=== PATIENT | female | born 1940 | race African-American/Black ===

== ENCOUNTER 2024-06-06 15:37 | Inpatient (IN) | payer MEDICARE, OTHER ==
[~2024-06-06] VITALS: Ht 167.6 cm; Wt 79.5 kg
[2024-06-06] MEDS ORDERED: PRAV10TA40 PO (16:28)
[2024-06-06] MEDS ORDERED: NALO4SPR NS (16:28)
[2024-06-06] MEDS ORDERED: LORA0.5T48 PO (16:28)
[2024-06-06] MEDS ORDERED: MAGN400O6 PO (16:28)
[2024-06-06] MEDS ORDERED: QUET50TA PO (16:28)
[2024-06-06] MEDS ORDERED: CHOL10005 PO (16:28)
[2024-06-06] MEDS ORDERED: BUDE0.253 IH (16:28)
[2024-06-06] MEDS ORDERED: BISA10SU61 RC (16:28)
[2024-06-06] MEDS ORDERED: DOCU-141 PO (16:28)
[2024-06-06] MEDS ORDERED: GUAI-789 PO (16:28)
[2024-06-06] MEDS ORDERED: LEVO75TA7 PO (16:28)
[2024-06-06] MEDS ORDERED: MULT-619 PO (16:28)
[2024-06-06] MEDS ORDERED: ESCI-9 PO (16:28)
[2024-06-06] MEDS ORDERED: ACET-3117 PO (16:28)
[2024-06-06] MEDS ORDERED: OXYC5CAP18 PO (16:28)
[2024-06-06] MEDS ORDERED: SENN8.6T19 PO (16:28)
[2024-06-06] MEDS ORDERED: MEMA10TA PO (16:28)
[2024-06-06] MEDS ORDERED: APIX5TAB PO (16:28)
[2024-06-06] MEDS ORDERED: GABA-532 PO (16:28)
[2024-06-06] MEDS ORDERED: NA P133E RC (16:28)
[2024-06-06] MEDS ORDERED: FERR240T5 PO (16:28)
[2024-06-06 16:56] LABS: CALCIUM 8.3 mg/dL (8.5-10.1); CARBON DIOXIDE 29 mmol/L (21-32); CHLORIDE 106 mmol/L (98-107); CREATININE 0.7 mg/dL (0.6-1.3); GLUCOSE 98 mg/dL (74-106); POTASSIUM 4.2 mmol/L (3.5-5.1); SODIUM SERUM 141 mmol/L (136-145); UREA NITROGEN, BLOOD 17 mg/dL (7-18)
[2024-06-06 17:03] LABS: AMMONIA 27 umol/L (11-32)
[2024-06-06 17:05] LABS: ALANINE AMINOTRANSFERASE 16 U/L (14-59); ALBUMIN 2.6 g/dL (3.4-5.0); ALKALINE PHOSPHATASE 86 U/L (50-136); ASPARTATE AMINOTRANSFERASE 10 U/L (15-37); BILIRUBIN,DIRECT 0.1 mg/dL (0.0-0.2); BILIRUBIN,TOTAL 0.3 mg/dL (0.2-1.0); LIPASE 27 U/L (16-77)
[2024-06-06 17:07] LABS: DIFFERENTIAL COMMENT 0; MEAN CORPUSCULAR HGB CONC 32 g/dL (32.3-35.6); RED BLOOD CELL COUNT(AUTO) 3.44 MIL/uL (3.63-4.92)
[2024-06-06] MEDS: IV NORMAL SALINE 1000 ML BAG IV ONE (17:07)
[2024-06-06 17:12] LABS: BASOPHILS % (AUTO) 0.6 % (0.0-2.0); EOSINOPHILS # (AUTO) 0.2 K/uL (0.0-0.7); EOSINOPHILS % (AUTO) 3.9 % (0.0-7.0); HEMATOCRIT 31.3 % (31.2-41.9); LYMPHOCYTES # (AUTO) 2.2 K/uL (0.8-4.8); LYMPHOCYTES % (AUTO) 38.4 % (20.5-51.5); MEAN CORPUSCULAR HEMOGLOBIN 28.9 uug (24.7-32.8); MEAN CORPUSCULAR VOLUME 90.9 fL (75.5-95.3); MONOCYTES # (AUTO) 0.7 K/uL (0.1-1.30); MONOCYTES % (AUTO) 12.2 % (0.0-11.0); NEUTROPHILS # (AUTO) 2.5 K/uL (1.8-8.9); NEUTROPHILS % (AUTO) 44.9 % (38.5-71.5); PLATELET COUNT (AUTO) 305 K/uL (179-408); RED CELL DISTRIBUTION WIDTH 14.8 % (12.3-17.7); WHITE BLOOD COUNT (AUTO) 5.6 K/uL (3.8-11.8)
[2024-06-06 18:34] VITALS: TEMP 98.2; O2SAT 98
[2024-06-06 18:35] VITALS: BP 152/65; TEMP 98.2; O2SAT 98
[2024-06-06] MEDS ORDERED: Medication Not On Formulary EA (Acetaminophen 650 MG) PO PRN (19:15)
[2024-06-06] MEDS ORDERED: SENNOSIDES 1 TABLET PO PRN (19:15)
[2024-06-06] MEDS ORDERED: FLEET ENEMA 133 ML BOTTLE RC PRN (19:15)
[2024-06-06] MEDS ORDERED: MAGNESIUM HYDROXIDE 30 ML LIQUID UDC PO PRN ×2 (19:15→21:15)
[2024-06-06] MEDS ORDERED: BISACODYL 10 MG SUPP.RECT RC PRN (19:15)
[2024-06-06] MEDS ORDERED: Medication Not On Formulary EA (Oxycodone Hcl 5 MG) PO PRN (19:15)
[2024-06-06] MEDS ORDERED: OXYCODONE HCL 5 MG TABLET PO PRN (20:15)
[2024-06-06 20:19] VITALS: BP_SYST 105; BP_SYST 108; BP_DIAS 55; BP_DIAS 60; TEMP 97.5; TEMP 98.4; O2SAT 95; O2SAT 96
[2024-06-06] MEDS ORDERED: Medication Not On Formulary EA (Pravastatin Sodium 10 MG) PO SCH (21:00)
[2024-06-06] MEDS: QUETIAPINE FUMARATE 25 MG TABLET PO SCH (21:02)
[2024-06-06] MEDS: GABAPENTIN 100 MG CAPSULE PO SCH (21:02)
[2024-06-06] MEDS: MEMANTINE HCL 10 MG TABLET PO SCH (21:02)
[2024-06-06] MEDS: ATORVASTATIN 10 MG TABLET PO SCH (21:02)
[2024-06-06] MEDS ORDERED: ONDANSETRON 4 MG/2 ML VIAL IV PRN (21:15)
[2024-06-07] VITALS (9 sets, daily range): BP systolic 98–146; BP diastolic 47–75; TEMP 97.3–98.5; O2SAT 94–100
[2024-06-07] MEDS: PANTOPRAZOLE SODIUM 40 MG TABLET.DR PO SCH (06:08)
[2024-06-07 06:47] LABS: BASOPHILS % (AUTO) 0.7 % (0.0-2.0); EOSINOPHILS # (AUTO) 0.2 K/uL (0.0-0.7); EOSINOPHILS % (AUTO) 5.4 % (0.0-7.0); HEMATOCRIT 33.1 % (31.2-41.9); HEMOGLOBIN 10.7 g/dL (10.9-14.3); LYMPHOCYTES # (AUTO) 1.6 K/uL (0.8-4.8); LYMPHOCYTES % (AUTO) 35.8 % (20.5-51.5); MEAN CORPUSCULAR HEMOGLOBIN 29.4 uug (24.7-32.8); MEAN CORPUSCULAR HGB CONC 32 g/dL (32.3-35.6); MONOCYTES # (AUTO) 0.5 K/uL (0.1-1.30); MONOCYTES % (AUTO) 10.1 % (0.0-11.0); NEUTROPHILS # (AUTO) 2.2 K/uL (1.8-8.9); PLATELET COUNT (AUTO) 291 K/uL (179-408); RED BLOOD CELL COUNT(AUTO) 3.63 MIL/uL (3.63-4.92); RED CELL DISTRIBUTION WIDTH 14.7 % (12.3-17.7); WHITE BLOOD COUNT (AUTO) 4.6 K/uL (3.8-11.8)
[2024-06-07 07:13] LABS: ALANINE AMINOTRANSFERASE 11 U/L (14-59); ALBUMIN 2.7 g/dL (3.4-5.0); ALKALINE PHOSPHATASE 81 U/L (50-136); ASPARTATE AMINOTRANSFERASE 10 U/L (15-37); BILIRUBIN,TOTAL 0.4 mg/dL (0.2-1.0); CALCIUM 8.3 mg/dL (8.5-10.1); CARBON DIOXIDE 29 mmol/L (21-32); CHLORIDE 106 mmol/L (98-107); CHOLESTEROL 146 mg/dL (<200); CREATININE 0.7 mg/dL (0.6-1.3); GLUCOSE 78 mg/dL (74-106); HDL CHOLESTEROL 53 mg/dL (40-60); PHOSPHOROUS 3.7 mg/dL (2.5-4.9); POTASSIUM 3.8 mmol/L (3.5-5.1); SODIUM SERUM 140 mmol/L (136-145); TOTAL PROTEIN, SERUM 6.9 g/dL (6.4-8.2); TRIGLYCERIDES 59 MG/DL (30-150); UREA NITROGEN, BLOOD 12 mg/dL (7-18)
[2024-06-07 07:14] LABS: DIFFERENTIAL COMMENT 1
[2024-06-07 07:22] LABS: IRON, SERUM 32 ug/dL (50-175)
[2024-06-07] MEDS: LEVOTHYROXINE SODIUM 75 MCG TABLET PO SCH (07:33)
[2024-06-07 07:59] LABS: THYROID STIMULATING HORMONE 24.794 mIU/mL (0.358-3.740)
[2024-06-07] MEDS ORDERED: BUDESONIDE 0.25 MG/2 ML NEBU IH SCH ×2 (09:00)
[2024-06-07] MEDS ORDERED: FERROUS GLUCONATE PO SCH (09:00)
[2024-06-07] MEDS ORDERED: LORAZEPAM 0.5 MG TABLET PO SCH ×2 (09:00)
[2024-06-07] MEDS ORDERED: ESCITALOPRAM OXALATE 10 MG TABLET PO SCH (09:00)
[2024-06-07] MEDS ORDERED: MULTIVITAMINS W MINERALS PO SCH (09:00)
[2024-06-07] MEDS ORDERED: Medication Not On Formulary EA (Cholecalciferol (Vitamin D3) (Vitamin D3) 1 CAP) PO SCH (09:00)
[2024-06-07] MEDS: CHOLECALCIFEROL 1,000 UNIT TABLET PO SCH (09:09)
[2024-06-07] MEDS: DOCUSATE SODIUM 100 MG CAPSULE PO SCH (09:10)
[2024-06-07] MEDS: LORAZEPAM 1 MG TABLET PO SCH (09:10)
[2024-06-07] MEDS: APIXABAN 5 MG TABLET PO SCH (09:10)
[2024-06-07] MEDS: MULTIVIT, IRON, MIN NO. 8, FA TABLET PO SCH (09:10)
[2024-06-07] MEDS: ESCITALOPRAM OXALATE 10 MG TABLET PO SCH (09:10)
[2024-06-07 13:17] LABS: THYROID STIMULATING HORMONE 28.097 mIU/mL (0.358-3.740)
[2024-06-07] MEDS: BUDESONIDE 0.25 MG/2 ML NEBU IH ONE (13:33)
[2024-06-07 16:38] LABS: *BILIRUBIN,URIN NEGATIVE (NEGATIVE); *BLOOD, URINE NEGATIVE (NEGATIVE); *CLARITY,URINE CLEAR (CLEAR); *COLOR,URINE YELLOW (YELLOW); *KETONES,URINE NEGATIVE (NEGATIVE); *PROTEIN,URINE NEGATIVE (NEGATIVE); *UROBILINOGEN,URINE 0.2 E.U./dl (NORMAL); LEUKOCYTE ESTERASE ,URINE TRACE (NEGATIVE); NITRITE, URINE NEGATIVE (NEGATIVE); UGLUCOSE NEGATIVE (NEGATIVE)
[2024-06-07 16:41] LABS: RBC,URINE 0-3 /HPF (0-3)
[2024-06-07] MEDS: CEphaleXIN 500 MG CAPSULE PO SCH (21:09)
[2024-06-08 05:02] VITALS: BP 140/66; TEMP 97.6; O2SAT 99
[2024-06-08] MEDS: FERROUS GLUCONATE 324 MG TABLET PO SCH (09:22)
[2024-06-08 12:00] VITALS: BP 112/55; TEMP 98.3; O2SAT 98
[2024-06-08 16:33] VITALS: BP 119/63; TEMP 97.4; O2SAT 98
[2024-06-08 21:24] VITALS: BP 133/36; TEMP 98.1; O2SAT 96
[2024-06-09 04:30] VITALS: BP 131/57; TEMP 97.2; O2SAT 92
[2024-06-09 08:28] VITALS: O2SAT 97
[2024-06-09] MEDS: BUDESONIDE 0.25 MG/2 ML NEBU IH SCH (08:28)
[2024-06-09 08:38] VITALS: O2SAT 99
[2024-06-09] MEDS: ACETAMINOPHEN 325 MG TABLET PO PRN (08:40)
[2024-06-09 11:52] VITALS: BP 109/53; TEMP 97.7; O2SAT 100
[2024-06-09 15:52] VITALS: BP 104/55; TEMP 97.6; O2SAT 96
== END 2024-06-09 18:45 | DRG 689 ==
LOC: ER 15:38 → TELE3 17:50 → MEDSURG3 06-07 11:51
PROVIDERS: ADMIT Internal Medicine; ATTEND Internal Medicine
DX: N39.0 Urinary tract infection, site not specified (principal); E43 Unspecified severe protein-calorie malnutrition; G92.8 Other toxic encephalopathy; F03.94 Unspecified dementia, unspecified severity, with anxiety; F03.93 Unspecified dementia, unspecified severity, with mood disturbance; D68.59 Other primary thrombophilia; E88.09 Other disorders of plasma-protein metabolism, not elsewhere classified; E66.9 Obesity, unspecified; Z68.28 Body mass index [BMI] 28.0-28.9, adult; E03.9 Hypothyroidism, unspecified; E78.5 Hyperlipidemia, unspecified; M15.9 Polyosteoarthritis, unspecified; Z86.718 Personal history of other venous thrombosis and embolism; Z86.711 Personal history of pulmonary embolism; Z79.01 Long term (current) use of anticoagulants; Z98.84 Bariatric surgery status; Z96.653 Presence of artificial knee joint, bilateral; S32.010D Wedge compression fracture of first lumbar vertebra, subsequent encounter for fracture with routine healing; X58.XXXD Exposure to other specified factors, subsequent encounter; R62.7 Adult failure to thrive; I44.0 Atrioventricular block, first degree; I25.10 Atherosclerotic heart disease of native coronary artery without angina pectoris; R26.2 Difficulty in walking, not elsewhere classified; Z79.890 Hormone replacement therapy; Z79.899 Other long term (current) drug therapy; R53.1 Weakness; D50.9 Iron deficiency anemia, unspecified; I10 Essential (primary) hypertension; J45.909 Unspecified asthma, uncomplicated; Z79.51 Long term (current) use of inhaled steroids
CPT/HCPCS: 36415; 70450; 71045; 83550; 83605; 83690; 83735; 83921; 84100; 84443; 84484; 85025; 85610; 94640; 94664; 97535-GO-CO; A4606; A4663; A6209; G0378; J3590; J7040

== ENCOUNTER 2025-01-27 13:36 | Inpatient (IN) | payer MEDICARE, OTHER ==
[~2025-01-27] VITALS: Ht 167.6 cm; Wt 81.6 kg
[~2025-01-27 13:36] MED LIST: ACET-3117 PO; APIX5TAB PO; BISA10SU61 RC; BUDE0.253 IH; CHOL10005 PO; DOCU-141 PO; ESCI-9 PO; FERR240T5 PO; GABA-532 PO; GUAI-789 PO; LEVO75TA7 PO; LORA0.5T48 PO; MAGN400O6 PO; MEMA10TA PO; MULT-619 PO; NA P133E RC; NALO4SPR NS; OXYC5CAP18 PO; PRAV10TA40 PO; QUET50TA PO; SENN8.6T19 PO
[2025-01-27] MEDS ORDERED: ATOR10TA PO (14:05)
[2025-01-27] MEDS ORDERED: QUET25TA PO (14:05)
[2025-01-27] MEDS ORDERED: NA P133E RC (14:05)
[2025-01-27] MEDS ORDERED: POLY250017 PO (14:05)
[2025-01-27] MEDS ORDERED: CYAN100T44 PO (14:05)
[2025-01-27] MEDS ORDERED: ONDA4TAB5 PO (14:05)
[2025-01-27] MEDS ORDERED: PANT40TA49 PO (14:05)
[2025-01-27] MEDS ORDERED: FERR324T4 PO (14:05)
[2025-01-27 14:21] LABS: BASOPHILS % (AUTO) 0.7 % (0.0-2.0); DIFFERENTIAL COMMENT 0; EOSINOPHILS # (AUTO) 0.2 K/uL (0.0-0.7); EOSINOPHILS % (AUTO) 3.6 % (0.0-7.0); HEMATOCRIT 30.1 % (31.2-41.9); HEMOGLOBIN 9.1 g/dL (10.9-14.3); LYMPHOCYTES % (AUTO) 33.8 % (20.5-51.5); MEAN CORPUSCULAR HEMOGLOBIN 23.4 uug (24.7-32.8); MEAN CORPUSCULAR HGB CONC 30 g/dL (32.3-35.6); MEAN CORPUSCULAR VOLUME 78.1 fL (75.5-95.3); MONOCYTES # (AUTO) 0.8 K/uL (0.1-1.30); MONOCYTES % (AUTO) 13.7 % (0.0-11.0); NEUTROPHILS # (AUTO) 2.9 K/uL (1.8-8.9); NEUTROPHILS % (AUTO) 48.2 % (38.5-71.5); PLATELET COUNT (AUTO) 270 K/uL (179-408); RED BLOOD CELL COUNT(AUTO) 3.86 MIL/uL (3.63-4.92); RED CELL DISTRIBUTION WIDTH 18.1 % (12.3-17.7)
[2025-01-27 14:35] LABS: CALCIUM 8.9 mg/dL (8.5-10.1); CARBON DIOXIDE 29 mmol/L (21-32); CHLORIDE 108 mmol/L (98-107); CREATININE 0.7 mg/dL (0.6-1.3); GLUCOSE 92 mg/dL (74-106); POTASSIUM 4.3 mmol/L (3.5-5.1); SODIUM SERUM 143 mmol/L (136-145); UREA NITROGEN, BLOOD 12 mg/dL (7-18)
[2025-01-27 14:49] LABS: ALANINE AMINOTRANSFERASE < 6 U/L (14-59); ALBUMIN 2.9 g/dL (3.4-5.0); ALKALINE PHOSPHATASE 105 U/L (50-136); ASPARTATE AMINOTRANSFERASE 17 U/L (15-37); BILIRUBIN,DIRECT 0.2 mg/dL (0.0-0.2); BILIRUBIN,TOTAL 0.4 mg/dL (0.2-1.0); NT-PRO BNP 89 pg/mL (0-125); TOTAL PROTEIN, SERUM 7.1 g/dL (6.4-8.2)
[2025-01-27] MEDS ORDERED: HYDROCODONE/APAP 5-325MG TABLET PO PRN (17:30)
[2025-01-27] MEDS ORDERED: REMEDY ESSENTIAL ZINC PASTE 113 GM TP PRN (17:30)
[2025-01-27] MEDS ORDERED: BISACODYL 10 MG SUPP.RECT RC PRN (17:30)
[2025-01-27] MEDS ORDERED: ONDANSETRON 4 MG/2 ML VIAL IV PRN (17:30)
[2025-01-27] MEDS ORDERED: MAGNESIUM HYDROXIDE 30 ML LIQUID UDC PO PRN (17:30)
[2025-01-27] MEDS ORDERED: FLEET ENEMA 133 ML BOTTLE RC PRN ×2 (17:30)
[2025-01-27] MEDS ORDERED: HYDROCODONE/APAP 10-325 MG TABLET PO PRN (17:30)
[2025-01-27] MEDS ORDERED: ACETAMINOPHEN 325 MG TABLET PO PRN (17:30)
[2025-01-27] MEDS ORDERED: TEMAZEPAM 15 MG CAPSULE PO PRN (17:30)
[2025-01-27] MEDS ORDERED: SENNOSIDES 1 TABLET PO PRN (17:30)
[2025-01-27 19:00] VITALS: BP 134/61; TEMP 97.8; O2SAT 96
[2025-01-27] MEDS: MEMANTINE HCL 10 MG TABLET PO SCH (20:16)
[2025-01-27] MEDS: QUETIAPINE FUMARATE 25 MG TABLET PO SCH (20:17)
[2025-01-27] MEDS: ATORVASTATIN 10 MG TABLET PO SCH (20:17)
[2025-01-27] MEDS: APIXABAN 5 MG TABLET PO SCH (20:19)
[2025-01-27] MEDS: GABAPENTIN 100 MG CAPSULE PO SCH (21:47)
[2025-01-28 06:00] VITALS: BP 149/63; TEMP 97.6; O2SAT 96
[2025-01-28] MEDS: PANTOPRAZOLE SODIUM 40 MG TABLET.DR PO SCH (06:42)
[2025-01-28] MEDS: LEVOTHYROXINE SODIUM 100 MCG TABLET PO SCH (06:43)
[2025-01-28 06:48] LABS: BASOPHILS # (AUTO) 0.1 K/UL (0.0-0.2); BASOPHILS % (AUTO) 0.8 % (0.0-2.0); EOSINOPHILS # (AUTO) 0.2 K/uL (0.0-0.7); EOSINOPHILS % (AUTO) 2.6 % (0.0-7.0); HEMATOCRIT 30.4 % (31.2-41.9); HEMOGLOBIN 9.3 g/dL (10.9-14.3); LYMPHOCYTES # (AUTO) 1.7 K/uL (0.8-4.8); LYMPHOCYTES % (AUTO) 26.6 % (20.5-51.5); MEAN CORPUSCULAR HEMOGLOBIN 23.6 uug (24.7-32.8); MEAN CORPUSCULAR HGB CONC 31 g/dL (32.3-35.6); MEAN CORPUSCULAR VOLUME 77.4 fL (75.5-95.3); MONOCYTES # (AUTO) 0.8 K/uL (0.1-1.30); MONOCYTES % (AUTO) 11.8 % (0.0-11.0); NEUTROPHILS # (AUTO) 3.8 K/uL (1.8-8.9); NEUTROPHILS % (AUTO) 58.2 % (38.5-71.5); PLATELET COUNT (AUTO) 290 K/uL (179-408); RED BLOOD CELL COUNT(AUTO) 3.93 MIL/uL (3.63-4.92); RED CELL DISTRIBUTION WIDTH 18.5 % (12.3-17.7); WHITE BLOOD COUNT (AUTO) 6.6 K/uL (3.8-11.8)
[2025-01-28 06:59] LABS: DIFFERENTIAL COMMENT 1
[2025-01-28 07:03] LABS: CALCIUM 9.1 mg/dL (8.5-10.1); CARBON DIOXIDE 28 mmol/L (21-32); CHLORIDE 108 mmol/L (98-107); CREATININE 0.7 mg/dL (0.6-1.3); GLUCOSE 84 mg/dL (74-106); MAGNESIUM 1.9 mg/dL (1.8-2.4); PHOSPHOROUS 3.8 mg/dL (2.5-4.9); POTASSIUM 4.2 mmol/L (3.5-5.1); SODIUM SERUM 143 mmol/L (136-145); UREA NITROGEN, BLOOD 10 mg/dL (7-18)
[2025-01-28] MEDS: CHOLECALCIFEROL 1,000 UNIT TABLET PO SCH (08:18)
[2025-01-28] MEDS: CYANOCOBALAMIN 100 MCG TABLET PO SCH (08:31)
[2025-01-28] MEDS: DOCUSATE SODIUM 100 MG CAPSULE PO SCH (08:31)
[2025-01-28] MEDS: ESCITALOPRAM OXALATE 10 MG TABLET PO SCH (08:31)
[2025-01-28] MEDS ORDERED: LEVOTHYROXINE SODIUM 75 MCG TABLET PO SCH (09:00)
[2025-01-28 11:30] VITALS: BP 136/59; TEMP 97.7; O2SAT 100
[2025-01-28 15:40] VITALS: BP 158/64; TEMP 97.5; O2SAT 96
[2025-01-28 19:00] VITALS: BP 125/54; TEMP 98; O2SAT 94
[2025-01-29 05:54] VITALS: BP 137/84; TEMP 98; O2SAT 93
[2025-01-29 11:35] VITALS: BP 97/58; TEMP 97.9; O2SAT 97
[2025-01-29 16:00] VITALS: BP 96/42; TEMP 98; O2SAT 97
[2025-01-29 19:00] VITALS: BP 129/66; TEMP 98.8; O2SAT 98
[2025-01-30 05:42] VITALS: BP 132/53; TEMP 98.4; O2SAT 93
[2025-01-30 08:00] VITALS: BP 140/62; TEMP 98.6; O2SAT 98
== END 2025-01-30 11:50 | DRG 553 ==
LOC: ER 13:43 → MEDSURG3 14:15
PROVIDERS: ADMIT Nurse Practitioner Acute Care; ATTEND Nurse Practitioner Acute Care
DX: M17.12 Unilateral primary osteoarthritis, left knee (principal); G93.41 Metabolic encephalopathy; E44.1 Mild protein-calorie malnutrition; F03.93 Unspecified dementia, unspecified severity, with mood disturbance; M25.562 Pain in left knee; R26.2 Difficulty in walking, not elsewhere classified; M25.462 Effusion, left knee; Z68.29 Body mass index [BMI] 29.0-29.9, adult; G62.9 Polyneuropathy, unspecified; Z98.84 Bariatric surgery status; Z96.653 Presence of artificial knee joint, bilateral; Z79.51 Long term (current) use of inhaled steroids; Z86.711 Personal history of pulmonary embolism; E78.5 Hyperlipidemia, unspecified; E03.9 Hypothyroidism, unspecified; E88.09 Other disorders of plasma-protein metabolism, not elsewhere classified; Z79.01 Long term (current) use of anticoagulants; I25.10 Atherosclerotic heart disease of native coronary artery without angina pectoris; E66.9 Obesity, unspecified; F32.9 Major depressive disorder, single episode, unspecified; F41.9 Anxiety disorder, unspecified; I10 Essential (primary) hypertension
CPT/HCPCS: 36415; 71045; 73562; 83735; 84100; 84484; 85025; 85730; A4606; A4663; G0378

== ENCOUNTER 2025-03-04 21:22 | Inpatient (IN) | payer MEDICARE, OTHER ==
[~2025-03-04] VITALS: Ht 162.6 cm; Wt 91.7 kg
[~2025-03-04 21:22] MED LIST changes: +ATOR10TA PO; +CYAN100T44 PO; -FERR240T5 PO; +FERR324T4 PO; +ONDA4TAB5 PO; +PANT40TA49 PO; +POLY250017 PO; -PRAV10TA40 PO; +QUET25TA PO
[2025-03-04 22:59] LABS: PLATELET COUNT (AUTO) 308 K/uL (179-408); RED BLOOD CELL COUNT(AUTO) 3.82 MIL/uL (3.63-4.92); RED CELL DISTRIBUTION WIDTH 19.0 % (12.3-17.7); WHITE BLOOD COUNT (AUTO) 7.1 K/uL (3.8-11.8)
[2025-03-04 23:09] LABS: CREATININE 0.8 mg/dL (0.6-1.3); SODIUM SERUM 140 mmol/L (136-145); UREA NITROGEN, BLOOD 14 mg/dL (7-18)
[2025-03-04 23:14] LABS: ASPARTATE AMINOTRANSFERASE 12 U/L (15-37); TOTAL PROTEIN, SERUM 7.5 g/dL (6.4-8.2)
[2025-03-05 01:24] LABS: EOSINOPHILS % (MANUAL) 3 % (0-8); LYMPHOCYTES % (MANUAL) 23 % (20-40); MONOCYTES % (MANUAL) 10 % (2-10); NEUTROPHILS % (MANUAL) 64 % (42-75); PLATELET ESTIMATE ADEQUATE
[2025-03-05] MEDS ORDERED: MAGNESIUM HYDROXIDE 30 ML LIQUID UDC PO PRN ×2 (01:45→14:30)
[2025-03-05] MEDS ORDERED: ACETAMINOPHEN 650 MG SUPP.RECT RC PRN (01:45)
[2025-03-05] MEDS ORDERED: REMEDY ESSENTIAL ZINC PASTE 113 GM TP PRN (01:45)
[2025-03-05 05:23] VITALS: BP 133/73; TEMP 97.6; O2SAT 95
[2025-03-05 05:24] VITALS: BP 133/73; TEMP 97.6; O2SAT 95
[2025-03-05 08:00] VITALS: BP 147/72; TEMP 97.7; O2SAT 93
[2025-03-05 08:32] LABS: PLATELET COUNT (AUTO) 330 K/uL (179-408); RED BLOOD CELL COUNT(AUTO) 3.94 MIL/uL (3.63-4.92); RED CELL DISTRIBUTION WIDTH 19.0 % (12.3-17.7); WHITE BLOOD COUNT (AUTO) 6.9 K/uL (3.8-11.8)
[2025-03-05 08:47] LABS: IRON, SERUM 14 ug/dL (50-175)
[2025-03-05 09:00] LABS: CREATININE 0.7 mg/dL (0.6-1.3); SODIUM SERUM 142 mmol/L (136-145); UREA NITROGEN, BLOOD 12 mg/dL (7-18)
[2025-03-05] MEDS: PANTOPRAZOLE SODIUM 40 MG VIAL IV SCH (09:00)
[2025-03-05] MEDS: ONDANSETRON 4 MG/2 ML VIAL IV PRN (09:00)
[2025-03-05 12:00] VITALS: BP 111/69; TEMP 97.7; O2SAT 96
[2025-03-05] MEDS ORDERED: ACET-2030 PO (12:17)
[2025-03-05] MEDS ORDERED: CYAN-51 PO (12:21)
[2025-03-05] MEDS ORDERED: LEVO100T10 PO (12:24)
[2025-03-05] MEDS ORDERED: LORA-259 PO (12:25)
[2025-03-05] MEDS ORDERED: BREX0.5T PO (12:36)
[2025-03-05] MEDS ORDERED: TEMA15CA PO (12:38)
[2025-03-05] MEDS ORDERED: CHOL100062 PO (12:48)
[2025-03-05] MEDS ORDERED: Medication Not On Formulary EA (Polyethylene Glycol 3350 17 GM) PO PRN (14:30)
[2025-03-05] MEDS ORDERED: FLEET ENEMA 133 ML BOTTLE RC PRN (14:30)
[2025-03-05] MEDS ORDERED: BISACODYL 10 MG SUPP.RECT RC PRN (14:30)
[2025-03-05] MEDS ORDERED: MIRALAX 17 GM POWD.PACK PO PRN (15:30)
[2025-03-05 16:00] VITALS: BP 141/70; TEMP 97.6; O2SAT 97
[2025-03-05] MEDS: DOCUSATE SODIUM 100 MG CAPSULE PO SCH (17:00)
[2025-03-05] MEDS: FERROUS SULFATE 325 MG TABEC PO SCH (17:31)
[2025-03-05 19:15] VITALS: BP 136/59; TEMP 98.5; O2SAT 91
[2025-03-05] MEDS: GABAPENTIN 100 MG CAPSULE PO SCH (21:42)
[2025-03-05] MEDS: MEMANTINE HCL 10 MG TABLET PO SCH (21:42)
[2025-03-05] MEDS: QUETIAPINE FUMARATE 25 MG TABLET PO SCH (21:42)
[2025-03-05] MEDS: ATORVASTATIN 10 MG TABLET PO SCH (21:42)
[2025-03-06 06:23] VITALS: BP 146/59; TEMP 98; O2SAT 84
[2025-03-06] MEDS: LEVOTHYROXINE SODIUM 100 MCG TABLET PO SCH (06:30)
[2025-03-06] MEDS ORDERED: BREXPIPRAZOLE 0.5 MG PO SCH (09:00)
[2025-03-06] MEDS ORDERED: PANTOPRAZOLE SODIUM 40 MG TABLET.DR PO SCH (09:00)
[2025-03-06] MEDS: ESCITALOPRAM OXALATE 10 MG TABLET PO SCH (09:16)
[2025-03-06] MEDS: CHOLECALCIFEROL 1,000 UNIT TABLET PO SCH (09:16)
[2025-03-06] MEDS: CYANOCOBALAMIN 1,000 MCG TABLET PO SCH (09:16)
[2025-03-06 11:42] VITALS: BP 118/55; TEMP 98.4; O2SAT 98
[2025-03-06 13:41] LABS: PLATELET COUNT (AUTO) 245 K/uL (179-408); RED BLOOD CELL COUNT(AUTO) 3.75 MIL/uL (3.63-4.92); RED CELL DISTRIBUTION WIDTH 19.6 % (12.3-17.7); WHITE BLOOD COUNT (AUTO) 4.9 K/uL (3.8-11.8)
[2025-03-06 16:05] VITALS: BP 118/50; TEMP 98.5; O2SAT 97
[2025-03-06] MEDS: SOD FERRIC GLUC COMPLX/SUCROSE 125 MG in IV NORMAL SALINE 100 ML IV SCH (17:55)
[2025-03-06 20:06] VITALS: BP 123/58; TEMP 98.6; O2SAT 92
[2025-03-07 04:43] VITALS: BP 122/66; TEMP 98.2; O2SAT 93
[2025-03-07] MEDS: PANTOPRAZOLE SODIUM 40 MG TABLET.DR PO SCH (06:20)
[2025-03-07 11:59] VITALS: BP 117/47; TEMP 97.8; O2SAT 94
[2025-03-07 16:34] VITALS: BP 122/43; TEMP 98.1; O2SAT 96
[2025-03-07] MEDS: TEMAZEPAM 15 MG CAPSULE PO PRN (20:40)
[2025-03-07 20:55] VITALS: BP 118/51; TEMP 98; O2SAT 96
[2025-03-07] MEDS: LORAZEPAM 1 MG TABLET PO PRN (23:29)
[2025-03-08 06:02] VITALS: BP 116/68; TEMP 97.2; O2SAT 93
[2025-03-08 07:04] LABS: PLATELET COUNT (AUTO) 245 K/uL (179-408); RED BLOOD CELL COUNT(AUTO) 3.87 MIL/uL (3.63-4.92); RED CELL DISTRIBUTION WIDTH 19.9 % (12.3-17.7); WHITE BLOOD COUNT (AUTO) 7.0 K/uL (3.8-11.8)
[2025-03-08 07:12] LABS: CREATININE 0.6 mg/dL (0.6-1.3); SODIUM SERUM 143 mmol/L (136-145); UREA NITROGEN, BLOOD 8 mg/dL (7-18)
[2025-03-08] MEDS ORDERED: AMOX-427 PO (10:18)
[2025-03-08 11:11] VITALS: BP 127/62; TEMP 98.5; O2SAT 94
== END 2025-03-08 16:35 | DRG 811 ==
LOC: ER 23:06 → MEDSURG3 03-05 00:50
PROVIDERS: ATTEND Internal Medicine
PROC: 05HF33Z Insertion of Infusion Device into Left Cephalic Vein, Percutaneous Approach (ICD-10-PCS; principal; 2025-03-05)
DX: D50.9 Iron deficiency anemia, unspecified (principal); K57.33 Diverticulitis of large intestine without perforation or abscess with bleeding; M48.56XA Collapsed vertebra, not elsewhere classified, lumbar region, initial encounter for fracture; F03.93 Unspecified dementia, unspecified severity, with mood disturbance; Z98.84 Bariatric surgery status; Z74.09 Other reduced mobility; R19.5 Other fecal abnormalities; R26.81 Unsteadiness on feet; E78.5 Hyperlipidemia, unspecified; Z96.653 Presence of artificial knee joint, bilateral; Z90.13 Acquired absence of bilateral breasts and nipples; Z86.718 Personal history of other venous thrombosis and embolism; Z68.34 Body mass index [BMI] 34.0-34.9, adult; E66.9 Obesity, unspecified; E03.9 Hypothyroidism, unspecified; Z79.890 Hormone replacement therapy; M51.369 Other intervertebral disc degeneration, lumbar region without mention of lumbar back pain or lower extremity pain; Z87.891 Personal history of nicotine dependence; Z87.09 Personal history of other diseases of the respiratory system; F32.A Depression, unspecified; I10 Essential (primary) hypertension; J45.909 Unspecified asthma, uncomplicated; Z79.51 Long term (current) use of inhaled steroids; Z79.01 Long term (current) use of anticoagulants; Z79.899 Other long term (current) drug therapy; I25.10 Atherosclerotic heart disease of native coronary artery without angina pectoris
CPT/HCPCS: 36415; 70030-TC; 70450; 71045; 82378; 83550; 83735; 83921; 84100; 84443; 85025; 85730; A4606; A4663; G0378; J2405; J2470; J2916; J7040